=== PATIENT | male | born 1965 | race Caucasian/White ===

== ENCOUNTER 2018-04-04 13:10 | Inpatient (IN) | payer SELFPAY, OTHER ==
[2018-04-04] MEDS: PIPER-TAZO 3.375 GM IV (PMX) 100 ML IVPB ×2 (13:58→21:35)
[2018-04-04] MEDS: SODIUM CHLORIDE 0.9% 1L BAG IV* (13:58)
[2018-04-04 13:59] LABS: ADD MAN DIFF? NO
[2018-04-04 14:08] LABS: BASOPHIL # 0.1 10^3/ul (0.0-0.1); BASOPHILS % 0.7 % (0.0-2.0); EOSINOPHILS # 0.1 10^3/ul (0.0-0.5); EOSINOPHILS % 1.7 % (0.0-7.0); HEMATOCRIT 38.2 % (42.0-52.0); LYMPHOCYTES # 1.1 10^3/ul (0.8-2.9); LYMPHOCYTES % 14.4 % (15.0-51.0); MEAN CORPUSCULAR HEMOGLOBIN 30.9 pg (29.0-33.0); MEAN CORPUSCULAR VOLUME 90.7 fl (82.0-101.0); MEAN PLATELET VOLUME 9.1 fl (7.4-10.4); MONOCYTE # 0.9 10^3/ul (0.3-0.9); MONOCYTES % 11.9 % (0.0-11.0); NEUTROPHIL # 5.4 10^3/ul (1.6-7.5); NEUTROPHILS % 70.8 % (39.0-77.0); PLATELET COUNT 185 10^3/UL (140-415); RED BLOOD COUNT 4.21 10^6/ul (4.70-6.10); RED CELL DISTRIBUTION WIDTH 13.1 % (11.5-14.5)
[2018-04-04 14:08] LABS: WHITE BLOOD COUNT 7.6 10^3/ul (4.8-10.8)
[2018-04-04 14:30] LABS: ANION GAP 13 (5-13); BLOOD UREA NITROGEN 20 mg/dl (7-20); CALCIUM 9.2 mg/dl (8.4-10.2); CARBON DIOXIDE 25 mmol/L (21-31); CHLORIDE 107 mmol/L (97-110); CREATININE 0.65 mg/dl (0.61-1.24); Estimated GFR > 60 mL/min (>60); GLUCOSE 115 mg/dl (70-220); POTASSIUM 4.5 mmol/L (3.5-5.1); SODIUM 145 mmol/L (135-144)
[2018-04-04] MEDS: VANCOMYCIN 1 GM (PMX) 250 ML IVPB (15:52)
[2018-04-04] MEDS ORDERED: HYDROCODONE/APAP (5/325) TAB PO ×2 (18:30)
[2018-04-04] MEDS ORDERED: ACETAMINOPHEN 325 MG TAB PO (18:30)
[2018-04-04] MEDS ORDERED: MAGNESIUM HYDROXIDE 30ML CUP PO (18:30)
[2018-04-04] MEDS ORDERED: ONDANSETRON 4 MG INJ IV ×2 (18:30→19:00)
[2018-04-04] MEDS ORDERED: DOCUSATE SODIUM 100 MG CAP PO (18:30)
[2018-04-04] MEDS ORDERED: VANCOMYCIN IV PER PHARMACY XX (18:30)
[2018-04-04] MEDS ORDERED: NACL 0.9% 3 ML SYG IV (18:30)
[2018-04-04] MEDS ORDERED: LORAZEPAM 2 MG INJ IV (19:30)
[2018-04-04] MEDS: NICOTINE (21 MG/24 HR) PATCH TRANSDERM (21:35)
[2018-04-05] MEDS: VANCOMYCIN 1 GM 250 ML IVPB ×2 (00:13→08:41)
[2018-04-05] MEDS: PIPER-TAZO 3.375 GM IV (PMX) 100 ML IVPB ×2 (06:22→13:29)
[2018-04-05] MEDS: PANTOPRAZOLE (EC) 40 MG TAB PO (06:22)
[2018-04-05] MEDS: NICOTINE (21 MG/24 HR) PATCH TRANSDERM (08:42)
[2018-04-05] MEDS: ENOXAPARIN 40 MG/0.4 ML SYG SC (08:44)
[2018-04-05 08:47] LABS: ADD MAN DIFF? NO
[2018-04-05 08:55] LABS: WHITE BLOOD COUNT 5.1 10^3/ul (4.8-10.8)
[2018-04-05 08:55] LABS: BASOPHILS % 0.8 % (0.0-2.0); EOSINOPHILS # 0.2 10^3/ul (0.0-0.5); EOSINOPHILS % 3.1 % (0.0-7.0); HEMATOCRIT 40.2 % (42.0-52.0); HEMOGLOBIN 13.4 g/dl (14.0-18.0); LYMPHOCYTES % 20.1 % (15.0-51.0); MEAN CORPUSCULAR HEMOGLOBIN 30.6 pg (29.0-33.0); MEAN CORPUSCULAR HGB CONC 33.3 g/dl (32.0-37.0); MEAN CORPUSCULAR VOLUME 91.8 fl (82.0-101.0); MEAN PLATELET VOLUME 9.4 fl (7.4-10.4); MONOCYTE # 0.6 10^3/ul (0.3-0.9); MONOCYTES % 12.6 % (0.0-11.0); NEUTROPHIL # 3.2 10^3/ul (1.6-7.5); PLATELET COUNT 165 10^3/UL (140-415); RED BLOOD COUNT 4.38 10^6/ul (4.70-6.10); RED CELL DISTRIBUTION WIDTH 12.9 % (11.5-14.5)
[2018-04-05 09:13] LABS: ANION GAP 8 (5-13); BLOOD UREA NITROGEN 17 mg/dl (7-20); CALCIUM 8.8 mg/dl (8.4-10.2); CARBON DIOXIDE 28 mmol/L (21-31); CHLORIDE 106 mmol/L (97-110); Estimated GFR > 60 mL/min (>60); GLUCOSE 101 mg/dl (70-220); MAGNESIUM 1.9 mg/dl (1.7-2.5); POTASSIUM 4.2 mmol/L (3.5-5.1); SODIUM 142 mmol/L (135-144)
== END 2018-04-05 15:20 | DRG 603 ==
LOC: E/R 13:10 → 2NE 18:42
DX: L03.114 Cellulitis of left upper limb (principal); L03.115 Cellulitis of right lower limb; Z59.0 Homelessness; Z87.891 Personal history of nicotine dependence
CPT/HCPCS: 73130-LT; 73560; 80048; 83735; 85025; 87040; 87070; 96374; 96375; 99285-25